=== PATIENT | male | born 1935 | race Caucasian/White ===

== ENCOUNTER → 2016-06-20 | Outpatient (CLI) | payer OTHER ==
[~2016-06-20] MED LIST: LYCOPENE; SELENIUM; SLO IRON; SPECTROVITE; VITA400C15
--- NOTE | 2016-06-21 06:08 | PAP/PSG TECHNICIAN REPORT ---
[facility] Viscose Department Worker Polysomnogram Report Study name: None Report date: 06/21/2016 Study date: 06/20/2016 Referring Physician: DR. YOUNGBLOOD Name: YEHUDA ASKEW Interpreting Physician: Kwame Youngblood M.D. Date of : 1935 Viscose Department Worker: LEONORA Greenwood. Sex: Male Age: 81 StudyType: PAP Nap Weight: 161 lbs 15 inches Height: 81 years, Height 5' 9" Neck Circum: BMI: 23.77 Medications: METOPROLOL SUCCINATE ER 25 MG, ASA 81 MG Patient History PATIENT HAD A SLEEP STUDY DONE IN November. HE WAS HERE FOR A TRIAL OF BIPAP AND WAS TITRATED TO 19/9 WITH A RATE OF 10. HE IS HERE TODAY DUE TO HIS BIPAP FEELING UNCOMFORTABLE AND IS WILLING TO TRY ASV TREATMENT. ESS = 11 RM 1 Parameters Monitored NPSG: E1-M2, E2-M1, Fp1-M2, Fp2-M1, F3-M2, F4-M2, F4-M1, C3-M2, C4-M2, C4-M1, O1-M2, O2-M2, O2-M1, T3-M2, T4-M1, P3-M2, P4-M1, CHIN1, CHIN2, HR, EKG, Legs, PFLOW, SNOR, FLOW, CFLOW, Tidal Volume, THOR, ABDO, SpO2, PLTH, CPRESS, ETCO2 Wave, ETCO2, pH Sleep Architecture Sleep Stages Time at Lights Off 10:18:24 PM STAGES Time (min.) TST (%) Time at Lights On 5:42:24 AM Wake 138.5 -- Total Recording Time (TRT) 444.50 min. N1 15.5 5 Total Sleep Period (TSP) 428.0 min. N2 117.0 38 Total Sleep Time (TST) 305.5min. N3 79.0 26 Awake Time 139.0 min. REM 94.0 31 Wake after Sleep Onset 122.5 min. Sleep Efficiency (SE) 69 % Sleep Onset Latency (AYE) 16.0 min. Number of Stage 1 Shifts None Awakenings 20 Stage Changes 75 Number of REM periods 5 REM 94.0 31 REM Latency 131.5 min. NREM 211.5 69 Body Position Analysis Supine Right Left Side Prone Vertical Total Sleep Time (min.) 61.1 151.0 114.0 265.00 0.0 0.0 Total Sleep Time (%) 13% 49% 37% 87 0% N/A% Total Sleep Time REM (min.) 37.0 38.0 19.0 None 0.0 0.0 Total Sleep Time NREM (min.) 3.5 113.0 95.0 None 0.0 0.0 Intermittent Wake (min.) 20.6 93.0 24.8 None 0.0 0.0 Total Sleep Period (%) 13% None None None None None Arousals Myoclonus (PLM) * Events Count Index Events Count Index Spontaneous 14 3 Events Awake (PLMW) 188 81.4 Respiratory 2 0.4 Events Asleep w/ Arousal (PLMA) 4 0.8 PLM 3 1 Events Asleep w/o Arousal (PLMS) 182 35.7 Snoring 0 0 Total Asleep 186 36.5 Total 19 4 Total 374 51 Respiratory Analysis * CA OA MA CH H RERA Total Count 0 0 0 0 21 1 21 Index 0.0 0.0 0.0 0 4.1 0 4.3 Mean Duration 0.0 0.0 0.0 0.00 24.8 15.4 24.4 Longest Duration 0.0 0.0 0.0 0.00 0.0 15.4 34.7 Respiratory Event Summary Total Supine ~Supine Right Left Prone REM NREM Apneas Count 0 0 0 0 0 N/A 0 0 Index 0.0 0 0 0.0 0.0 N/A 0 0 Hypopneas (4% Desat) Count 21 0 21 2 19 N/A 0 21 Index 4.1 0.0 5 0.8 10.0 N/A 0.0 6.0 Apneas & All Hypopneas Count 21 0 21 2 19 N/A 0 21 Index 4.1 0 5 1 10 N/A 0.0 6.0 Respiratory Events (Steam Oven Operator+All Hyp+RERA) Count 21 0 22 2 20 N/A 0 21 Index 4.3 0 5 0.8 10.5 N/A 0.0 6.2 Respiratory Related Arousal Count 2 0 2 0 2 N/A 0 2 Index 0.4 0 0 0 1 N/A 0 1 Snoring Analysis Supine Right Left Prone REM NREM Total Snore duration 1.2 min Snores count 2 22 32 N/A 8 48 56 Snore mean duration 1.3 Sec Snores index 3 9 17 N/A 5.1 13.6 11.0 TST with snoring (%) 0.4% Desaturation Event Summary: Minimum %SpO2 Event Count Mean/Min/Max Duration(sec.) Desaturation Index % Time In Bed > 90 30 47.7 / 26.8 / 69.9 6.5 62.8 86 - 90 6 38.4 / 26.8 / 54.6 2.3 35.9 81 - 85 0 N/A 0.0 1.3 76 - 80 0 N/A 0.0 0.0 71 - 75 0 N/A 0.0 0.0 66 - 70 0 N/A 0.0 0.0 61 - 65 0 N/A 0.0 0.0 56 - 60 0 N/A 0.0 0.0 51 - 55 0 N/A 0.0 0.0 < 50 0 N/A 0.0 0.0 Total REM NREM Awake <50% 0.0 min. 0.0 min. 0.0 min. 0.0 min. 51 - 60% 0.0 min. 0.0 min. 0.0 min. 0.0 min. 61 - 70% 0.0 min. 0.0 min. 0.0 min. 0.0 min. 71 - 80% 0.1 min. 0.0 min. 0.0 min. 0.1 min. 81 - 90% 164.7 min. 52.2 min. 86.3 min. 26.2 min. 91 - 100% 278.1 min. 41.8 min. 125.2 min. 111.1 min. Average 91 90 91 92 Minimum SpO2 71 86 82 71 Desaturation Event Index 4.3 0.0 6.5 4.3 # Desat. Events below 89% 27 N/A 20 7 Time(%) with Saturation below 89% 18.9 5.8 10.7 2.4 Time(min.) with Saturation below 89% 83.5 25.6 47.4 10.5 Time (mins) REM (mins) NREM (mins) % of TST SpO2 Below 90% 23 N/A N23 35.5 SpO2 Below 88% 15 0 0 12 Heart Rate Analysis Min (bpm) Max (bpm) Average (bpm) Awake 38 70 47 NREM 31 59 45 REM 33 59 46 Overall 31 59 45 Supplemental O2 Values Minimum O2 level: None Value Start Time End Time Viscose Department Worker Comments Mr. Askew slept in the right, left and supine positions. PVC's and PAC's noted. Leg movements noted. No bruxism noted. ASV was initiated at EPAP min 4 CWP, EPAP max 15 CWP, Pressure Support Min 2 CWP, Pressure Support max 20 CWP, Max Pressure 25 CWP, Rate Auto and up-titrated to an optimal level of EPAP min 5 CWP, EPAP max 15 CWP, Pressure Support Min 2 CWP, Pressure Support Max 20 CWP, Max Pressure 25 CWP and Rate Auto which nearly eliminated all respiratory events and snoring. The patient brought in his own full face mask that was used during titration Mr. Askew awoke to use the restroom 0 times during the night. Mr. Askew stated I slept as well as I do when I am in my own bed. At 3:51 AM 1l/min of supplemental oxygen was initiated due to his oxygen reading being at 88% or lower for at least 5 minutes and having an AHI under 5/hr. Final settings: EPAP min 5cwp, EPAP Max 15cwp, Pressure Support Min 2cwp, Pressure Support Max 20cwp, Max Pressure 25cwp with Auto rate. Also, 1l/min of supplemental oxygen was titrated. The final report will be interpreted and signed by a sleep physician. The completed physician report will then be placed in the patient medical record. Therapy Event: Therapy (cm H20) 1 Total Time at Pressure (min.) 320.9 TST at Pressure (min.) 284.4 # Periods 1 Sleep Onset (min.) 0.0 REM Onset (min.) 24.4 Sleep Efficiency % 88 Wakefulness (%) 11.4 Wakefulness (min.) 36.5 NREM 1 (%) 3.9 NREM 1 (min.) 12.4 NREM 2 (%) 30.9 NREM 2 (min.) 99.0 NREM 3 (%) 24.6 NREM 3 (min.) 79.0 REM (%) 29.3 REM (min.) 94.0 # Arousals 15 Arousal Index 3.2 # Snore 52 Snore Index 11.0 AHI 2.3 AHI Supine 0.0 AHI Non-Supine 2.7 NREM AHI 3.5 REM AHI 0.0 RDI 2.5 # Obstructive 0 # Central Ap 0 # Mixed 0 # Hypopneas 11 RERAS 1 Total Respiratory Events 12 Time Below SpO2 89.00% (min.) 62.3 Mean NREM SpO2 (%) 91 Mean REM SpO2 (%) 90 Mean Sleep SpO2 (%) 91 Min NREM SpO2 (%) 84 Min REM SpO2 (%) 86 Position Supine (min.) 40.5 Position Non-supine (min.) 243.9 LM Index Sleep 32.3 LM Index NREM 45.4 LM Index REM 5.7 Mean Heart Rate (bpm) 45 Min Heart Rate (bpm) 31
--- NOTE | 2016-06-21 10:46 | POLYSOMNOGRAPH REPORT ---
CLINICAL DATA: A 81-year-old male with BMI of 23.77. He had a previous sleep study in November 2015 and was started on BiPAP 11/02 with a rate of 10. He is back because his BiPAP was uncomfortable and he was willing to try ASV. SLEEP ARCHITECTURE: Total sleep period was 428 minutes. Total sleep time was 305.5 minutes divided between 211.5 minutes of non-REM sleep and 94 minutes of REM sleep. Sleep onset latency was 16 minutes. REM latency was 131.5 minutes. Sleep efficiency was 69%. Wake after sleep onset was elevated at 122.5 minutes. Sleep consisted of stage N1 5%, N2 38%, N3 26, and REM 31%. AROUSAL DATA: 19 arousals were recorded for an index of 4 per hour. PERIODIC LIMB MOVEMENTS DATA: 186 limb movements during sleep were noted for an index of 36.5 per hour with arousal index of 0.8 per hour. RESPIRATORY DATA: The AHI was 4.1. There were 21 hypopneic episodes. The mean duration of hypopnea was 24.8 seconds. OXIMETRY DATA: Mild nocturnal hypoxemia was seen. Oxygen lui was 82% during non-REM sleep. The mean saturation was 91%. Time below 88% was 15 minutes. EKG: Heart rates ranged from 41-59 beats per minute. PVCs and PACs were noted. EXPENSE CLERK'S COMMENTS AND TREATMENT SUMMARY: The patient slept in the right, left, and supine positions. ASV was initiated at an EPAP minimum of 4 cm of water pressure, EPAP maximum of 15 cm water pressure, pressure support minimum of 2 cm water pressure, pressure support maximum of 20 cm of water pressure, maximum pressure of 25 cm water pressure with an auto rate. The patient was titrated up to his final pressure setting on ASV, which were EPAP 5 cm water pressure, EPAP max 15 cm water pressure, pressure support minimum 2 cm water pressure, pressure support maximum 20 cm water pressure, maximum pressure 25 cm of water pressure and auto rate which eliminated almost all of his respiratory events. He did have oxygen at 1 liter per minute added at 3:51 a.m. because of persistent hypoxemia in spite of elimination of sleep apnea. At the final ASV pressure setting, the patient slept for 284.4 minutes with an AHI of 3.3. IMPRESSION: Complex sleep apnea corrected with ASV EPAP 5, EPAP max of 15, pressure support minimum of 2 and maximum of 20 with a maximum pressure of 25 and auto rate with 1 liter per minute of oxygen. RECOMMENDATIONS: The patient should be started on ASV at the above settings along with oxygen at night and seen back in followup within 90 days to document efficacy and compliance. MTDD
== END | disposition home or self-care (01) ==
LOC: C.NEUR 20:00
PROVIDERS: ATTEND Internal Medicine Pulmonary Disease
DX: G47.31 Primary central sleep apnea (principal)

== ENCOUNTER → 2016-07-09 | Outpatient (CLI) | payer OTHER ==
[~2016-07-09] VITALS: Ht 167.6 cm; Wt 73.0 kg
[2016-07-09 13:42] VITALS: BP 156/84; PULSE 54; Ht 167.6 cm; Wt 73.0 kg
== END | disposition home or self-care (01) ==
LOC: C.NEUR 13:32
PROVIDERS: ATTEND Internal Medicine Pulmonary Disease
DX: G47.31 Primary central sleep apnea (principal); G47.34 Idiopathic sleep related nonobstructive alveolar hypoventilation

== ENCOUNTER → 2016-09-24 | Outpatient (CLI) | payer OTHER ==
[~2016-09-24] VITALS: Ht 167.6 cm; Wt 163.1 kg
[2016-09-24 14:15] VITALS: BP 116/66; PULSE 52; Ht 167.6 cm; Wt 163.1 kg
== END | disposition home or self-care (01) ==
LOC: C.NEUR 13:37
PROVIDERS: ATTEND Internal Medicine Pulmonary Disease
DX: G47.31 Primary central sleep apnea (principal); G47.34 Idiopathic sleep related nonobstructive alveolar hypoventilation